=== PATIENT | female | born 1940 | race Caucasian/White ===

== ENCOUNTER 2023-11-15 09:33 | Day surgery (SDC) | payer MEDICARE ==
[~2023-11-15] VITALS: Ht 157.5 cm; Wt 98.1 kg
[~2023-11-15 09:33] MED LIST: AMLO1TAB24 PO; ECOT81TA5 PO; LOSA100T8 PO; LR 1,000 ML IV SCH; METO50TA7 PO; MIDAZOLAM INJ 2MG/2ML VIAL As Ordered ONE; fentaNYL 100 MCG/2 ML INJECTION As Ordered ONE
[2023-11-15] MEDS: TETRACAINE 0.5% OPHTH SOLN 4ML OS SCH (10:16)
[2023-11-15] MEDS: FLURBIPROFEN 0.03% OPHTH SOLN 2.5 ML OS SCH (10:16)
[2023-11-15] MEDS: PHENYLEPHRINE 2.5% OPHTH SOL 2ML OS SCH (10:16)
[2023-11-15] MEDS: ATROPINE SULFATE 1% OPHTH SOLN 2ML BTL OS SCH (10:17)
[2023-11-15] MEDS: LIDOCAINE 1% SDV 5ML VIAL As Ordered ONE (12:03)
[2023-11-15] MEDS: CEFUROXIME 1MG/0.1ML INTRACAMERAL INJ As Ordered ONE (12:03)
[2023-11-15 12:20] VITALS: BP 151/69; TEMP 97.6; O2SAT 96
== END 2023-11-15 13:10 | disposition home or self-care (01) ==
LOC: M SDC 09:33
PROVIDERS: ATTEND Ophthalmology
DX: H25.12 Age-related nuclear cataract, left eye (principal); H11.89 Other specified disorders of conjunctiva; I10 Essential (primary) hypertension; Z79.899 Other long term (current) drug therapy; Z79.82 Long term (current) use of aspirin
CPT/HCPCS: 66984; 68110; 88304; J0697; J2250; J3010; V2632

== ENCOUNTER 2023-12-20 11:53 | Day surgery (SDC) | payer MEDICARE ==
[~2023-12-20] VITALS: Ht 157.5 cm; Wt 99.2 kg
[~2023-12-20 11:53] MED LIST changes: -MIDAZOLAM INJ 2MG/2ML VIAL As Ordered ONE; -fentaNYL 100 MCG/2 ML INJECTION As Ordered ONE
[2023-12-20] MEDS: ATROPINE SULFATE 1% OPHTH SOLN 2ML BTL OD SCH (12:46)
[2023-12-20] MEDS: PHENYLEPHRINE 2.5% OPHTH SOL 2ML OD SCH (12:46)
[2023-12-20] MEDS: FLURBIPROFEN 0.03% OPHTH SOLN 2.5 ML OD SCH (12:46)
[2023-12-20] MEDS: TETRACAINE 0.5% OPHTH SOLN 4ML OD SCH (12:46)
[2023-12-20] MEDS ORDERED: MIDAZOLAM INJ 2MG/2ML VIAL As Ordered ONE (12:48)
[2023-12-20] MEDS ORDERED: fentaNYL 100 MCG/2 ML INJECTION As Ordered ONE (12:49)
[2023-12-20] MEDS: LIDOCAINE 1% SDV 5ML VIAL As Ordered ONE (14:19)
[2023-12-20] MEDS: CEFUROXIME 1MG/0.1ML INTRACAMERAL INJ As Ordered ONE (14:19)
[2023-12-20 14:36] VITALS: BP 131/64; TEMP 96.8; O2SAT 99
== END 2023-12-20 15:00 | disposition home or self-care (01) ==
LOC: M SDC 11:53
PROVIDERS: ATTEND Ophthalmology
DX: H25.11 Age-related nuclear cataract, right eye (principal); Z98.42 Cataract extraction status, left eye; Z68.41 Body mass index [BMI] 40.0-44.9, adult; Z79.899 Other long term (current) drug therapy
CPT/HCPCS: 66984; J0697; J2250; J3010; V2632